=== PATIENT | male | born 1995 | race American Indian/Alaskan Native ===

== ENCOUNTER 2018-04-19 | Emergency (ER) | payer BC ==
[2018-04-19 00:17] VITALS: BP 122/68
== END 2018-04-19 03:30 | disposition left against medical advice (07) ==
LOC: ED
DX: R06.00 Dyspnea, unspecified (principal); Z53.21 Procedure and treatment not carried out due to patient leaving prior to being seen by health care provider

== ENCOUNTER 2022-05-09 03:39 | Emergency (ER) | payer SELFPAY ==
[2022-05-09] MEDS ORDERED: ONDANSETRON 4 MG ODT TAB PO ONE (07:20)
--- NOTE | 2022-05-09 07:41 | Emergency Department Report ---
ED N/V/D HPI - General Chief complaint: Nausea/Vomiting/Diarrhea Stated complaint: HEADACHE Time Seen by Provider: 05/09/22 07:18 Source: patient Mode of arrival: Ambulatory Limitations: No Limitations - History of Present Illness Initial comments: Is a 26-year-old male who presents for nausea vomiting x3 days states constipation. Patient is a 75-eyce-sqay smoker occasional EtOH Daily marijuana. Patient denies fevers or chills. There is no productive cough. Last p.o. intake last night. Last nausea vomiting yesterday. Patient drove self to ED pa tient appears nontoxic. Symptoms are exacerbated by p.o. intake. Symptoms are relieved by nothing tried. Patient does not recall suspicious meal that initiated symptoms. MD complaint: nausea, vomiting - Related Data Home Medications Medication Instructions Recorded Confirmed Last Taken Propranolol HCl 20 mg PO BID 02/26/14 02/26/14 Unknown diphenhydrAMINE [Benadryl] 50 mg PO QHS PRN 02/26/14 02/26/14 Unknown risperiDONE [Risperdal] 2 mg PO QDAY 02/26/14 02/26/14 Unknown Previous Rx's Medication Instructions Recorded Last Taken Type Benztropine [Cogentin] 2 mg PO BID #60 tablet 03/12/14 Unknown Rx Magnesium Citrate [Citrate of 296 ml PO ONCE #1 bottle 05/09/22 Unknown Rx Magnesia] bisacodyL [Dulcolax] 10 mg PO DAILY PRN #3 tab 05/09/22 Unknown Rx Allergies Allergy/AdvReac Type Severity Reaction Status Date / Time No Known Allergies Allergy Unverified 12/23/13 11:56 ED Review of Systems ROS: Stated complaint: HEADACHE Other details as noted in HPI Constitutional: denies: chills, fever Eyes: denies: eye pain, eye discharge, vision change ENT: denies: ear pain, throat pain Respiratory: denies: cough, shortness of breath, wheezing Cardiovascular: denies: chest pain, palpitations Endocrine: no symptoms reported Gastrointestinal: nausea, vomiting, diarrhea (X1 episode yesterday), constipation. denies: abdominal pain Genitourinary: denies: urgency, dysuria Musculoskeletal: denies: back pain, joint swelling, arthralgia Skin: denies: rash, lesions Neurological: denies: headache, weakness, paresthesias Psychiatric: denies: anxiety, depression Hematological/Lymphatic: denies: easy bleeding, easy bruising ED Past Medical Hx - Past Medical History Hx Psychiatric Treatment: Yes (anxiety) Additional medical history: anxiety, BIPOLAR, SCHIZOAFFECTIVE DISORDER - Social History Smoking Status: Current Every Day Smoker Substance Use Type: Alcohol - Medications Home Medications: Home Medications Medication Instructions Recorded Confirmed Last Taken Type Propranolol HCl 20 mg PO BID 02/26/14 02/26/14 Unknown History diphenhydrAMINE [Benadryl] 50 mg PO QHS PRN 02/26/14 02/26/14 Unknown History risperiDONE [Risperdal] 2 mg PO QDAY 02/26/14 02/26/14 Unknown History Benztropine [Cogentin] 2 mg PO BID #60 tablet 03/12/14 Unknown Rx Magnesium Citrate [Citrate of 296 ml PO ONCE #1 bottle 05/09/22 Unknown Rx Magnesia] bisacodyL [Dulcolax] 10 mg PO DAILY PRN #3 tab 05/09/22 Unknown Rx ED Physical Exam - General Limitations: No Limitations General appearance: alert, in no apparent distress - Head Head exam: Present: normocephalic, normal inspection - Eye Eye exam: Present: EOMI Pupils: Present: normal accommodation - ENT ENT exam: Present: mucous membranes moist - Neck Neck exam: Present: normal inspection, full ROM. Absent: tenderness - Respiratory Respiratory exam: Present: normal lung sounds bilaterally. Absent: respiratory distress, wheezes - Cardiovascular Cardiovascular Exam: Present: regular rate, normal rhythm, normal heart sounds. Absent: systolic murmur, diastolic murmur, rubs, gallop - GI/Abdominal GI/Abdominal exam: Present: soft, normal bowel sounds. Absent: distended, tenderness, guarding, rebound, rigid, bruit, hernia - Rectal Rectal exam: Present: deferred - Extremities Exam Extremities exam: Present: normal inspection, full ROM, normal capillary refill. Absent: tenderness - Back Exam Back exam: Present: normal inspection, full ROM. Absent: CVA tenderness (R), CVA tenderness (L) - Neurological Exam Neurological exam: Present: alert, oriented X3 - Expanded Neurological Exam Expanded Patient oriented to: Present: person, place, time Speech: Present: fluid speech Motor strength exam: RUE: 5, LUE: 5, RLE: 5, LLE: 5 Best Eye Response (Hilda): (4) open spontaneously Best Motor Response (Hilda): (6) obeys commands Best Verbal Response (Malone): (5) oriented Hilda Total: 15 - Psychiatric Psychiatric exam: Present: normal affect, normal mood - Skin Skin exam: Present: warm, dry, intact, normal color. Absent: rash ED Course Vital Signs 05/09/22 04:32 Temperature 98.3 F Pulse Rate 104 H Respiratory 18 Rate Blood Pressure 115/66 O2 Sat by Pulse 97 Oximetry ED Medical Decision Making - Radiology Data Radiology results: report reviewed, image reviewed ABDOMEN 1 VIEW INDICATION / CLINICAL INFORMATION: constipation. COMPARISON: None available. FINDINGS: TUBES / LINES: None. BOWEL GAS PATTERN: No significant abnormality. An expected amount of stool is seen along the colon. FREE AIR / EXTRALUMINAL GAS: None seen. ADDITIONAL FINDINGS: No significant additional findings. IMPRESSION: 1. No significant abnormality. Signer Name: Roverto Augustine MD Signed: 05/09/2022 7:49 AM Workstation Name: [id number] Transcribed By: AIXA Dictated By: Roverto Augustine MD Electronically Authenticated By: Roverto Augustine MD Signed Date/Time: 05/09/22748 DD/ 7 TD/TT: - Medical Decision Making Patient tolerating p.o. challenge. KUB noted as above. Plan DC to home, hydrate, laxative of choice, follow-up primary care doctor in 2 to 3 days. Patient advised to stop marijuana. Return to emergency department for symptoms worsen. Patient verbalized agreement and understanding of discharge plan. Patient DC'd home in stable condition at this time. Critical care attestation.: If time is entered above; I have spent that time in minutes in the direct care of this critically ill patient, excluding procedure time. ED Disposition Clinical Impression: Nausea and vomiting Qualifiers: Vomiting type: unspecified Qualified Code(s): R11.2 - Nausea with vomiting, unspecified Disposition: 01 HOME / SELF CARE / HOMELESS Is pt being admited?: No Does the pt Need Aspirin: No Condition: Stable Instructions: Constipation, Adult, Nausea and Vomiting, Adult, [id number], Rehydration, Adult Additional Instructions: Take medication as prescribed, decrease marijuana use, follow-up with primary care doctor in 2 to 3 days. Return to the emergency should symptoms worsen or unable to tolerate food or drink by mouth. Prescriptions: Magnesium Citrate [Citrate of Magnesia] 296 ml PO ONCE #1 bottle bisacodyL [Dulcolax] 10 mg PO DAILY PRN #3 tab PRN Reason: constipation Referrals: SAVANNAH SOUZA MD [Staff Physician] - 3-5 Days Forms: Work/School Release Form(ED) Time of Disposition: 08:06
--- NOTE | 2022-05-09 07:54 | XRay Report ---
ABDOMEN 1 VIEW INDICATION / CLINICAL INFORMATION: constipation. COMPARISON: None available. FINDINGS: TUBES / LINES: None. BOWEL GAS PATTERN: No significant abnormality. An expected amount of stool is seen along the colon. FREE AIR / EXTRALUMINAL GAS: None seen. ADDITIONAL FINDINGS: No significant additional findings. IMPRESSION: 1. No significant abnormality. Signer Name: Roverto Augustine MD Signed: 05/09/2022 7:49 AM Workstation Name: [id number]
[2022-05-09 08:22] VITALS: BP 113/86
== END 2022-05-09 08:22 | disposition home or self-care (01) ==
LOC: ED 03:39
DX: R11.2 Nausea with vomiting, unspecified (principal); R51.9 Headache, unspecified; F41.9 Anxiety disorder, unspecified; F31.9 Bipolar disorder, unspecified; F20.9 Schizophrenia, unspecified; F17.200 Nicotine dependence, unspecified, uncomplicated; Z72.89 Other problems related to lifestyle; Z79.899 Other long term (current) drug therapy
CPT/HCPCS: 74018; 99283; J3490; Q0162